=== PATIENT | female | born 1950 | race Caucasian/White ===

== ENCOUNTER 2025-01-17 10:20 | Outpatient (AMB) | payer MEDICARE, MEDICAID, SELFPAY ==
--- NOTE | 2025-01-17 10:28 | A.OFFVIS_ITS ---
Vital Signs 01/17/25 10:30 Height 5 ft 5 in Weight 183 lb BMI 30.4 BP 118/76 Blood Pressure Location Rt brachial Position Sitting Intake Visit Reasons: ENP - Tremors, Alcoholic Neuropathy Intake Note: referred for tremors alcoholic neuropathy Allergies No Known Allergies Allergy (Verified 01/17/25 10:30) HPI Comments Details: 74y/o female with h/o alcoholism, alcoholic neuropathy comes here for evaluation of tremors. she is in a jail for past 7 years. she reports tremors in her hands and LE , It is more with action and posture. She has difficulty eating, drinking from a cup and also with fine motor activity she was a heavy alcoholic - started at age 19 and stopped 7 years ago . she was drinking heavily prior to that- beer 6 cans a day minimum. 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 Senile degeneration of brain, not elsewhere classified Generalized anxiety disorder Panic disorder [episodic paroxysmal anxiety] Alcohol abuse with alcohol-induced anxiety disorder Alcohol abuse, uncomplicated 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 Deficiency of other specified B group vitamins Vitamin D deficiency Polycythemia Anemia Dysphagia, oropharyngeal phase Alcohol abuse with other alcohol-induced disorder Other and unspecified hyperlipidemia Need for assistance with personal care Contact with and (suspected) exposure to other viral communicable diseases COVID-19 Hypoxemia Hypotension, unspecified Major depressive disorder, single episode, unspecified Lipoprotein deficiency Alcohol abuse with intoxication, unspecified Age-related nuclear cataract, bilateral Influenza due to identified novel influenza A virus with other respiratory manifestations Other problems related to life management difficulty Difficulty in walking, not elsewhere classified Alcoholic polyneuropathy Chronic obstructive pulmonary disease, unspecified Unspecified dementia, unspecified severity, without behavioral disturbance, psychotic disturbance, mood disturbance, and anxiety Surgical History Hx of appendectomy Social History Alcohol intake: former Patient Tobacco Use Status: Former Tobacco user Physical Exam Vital Signs: Last Vital Signs BP 118/76 01/17/25 10:30 BMI result Body Mass Index 30.4 Const General: cooperative and comfortable Nutritional Appearance: overweight Orientation/consciousness: patient oriented x3 Eyes Pupils: Equal, round and reactive pupils present Neuro Other: Jaun past pointning and dysmetria truncal ataxia No rest tremors Tone was normal No postural, high amplitude action tremors General: patient oriented x3, moves all extremities, no focal motor deficits and Unable to assess gait Cranial nerves: Yes Facial sensation intact/muscles of mastication intact, Yes Equal, round and reactive pupils present, Yes Bilaterally intact EOM present, Yes Nystagmus not present, Yes Normal facial strength present and Yes Midline tongue present Cognition (Neuro): normal cognition Gait exam (Neuro): Unable to assess gait Motor exam (neuro): 5/5 motor strength present throughout and Normal motor muscle tone present throughout Deep tendon reflexes (DTR's): Right triceps reflex intensity grade: 1+, Left triceps reflex intensity grade: 1+, Rt Biceps (C5, C6): 1+, Left biceps reflex intensity grade: 1+, Right brachioradialis reflex intensity grade: 1+, Left brachioradialis reflex intensity grade: 1+, Right patellar reflex intensity grade: 1+ and Left patellar reflex intensity grade: 1+ Coordination: [id number] test normal Assessment & Plan Assessment & Plan (1) 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
[2025-01-17 10:30] VITALS: BP 118/76; BMI 30.4
--- OUTSIDE RECORDS SUMMARY | 2025-01-17 10:55 | XMS_ITS | Clinical Summary ---
Author Organization [facility] Address [address] [place] [address] Phone Care Team Providers Care Floorleader Name Role Phone Helene Rocha MD Primary Care Provider [phone] Social History Tobacco Use Types Packs/Day Years Used Date Smoking Tobacco: Never Assessed Comments Unknown Sex and Gender Information Value Date Recorded Sex Assigned at Not on file Legal Sex Female 9:58 AM EST Gender Identity Not on file Sexual Orientation Not on file Plan of Treatment Health Maintenance Due Date Last Done Comments Breast Cancer Screening 1950 DTaP,Tdap,and Td Vaccines (1 - Tdap) 12/19/1970 Pneumococcal Vaccine: 50+ Ye ars (1 of 2 - PCV) 12/19/1970 Zoster Vaccines (1 of 2) 12/19/2001 RSV Immunization Adult Patie nts (1 - Risk 60-74 years 1-dose series) 2011 Colorectal Cancer Screening: Colonoscopy 06/21/2022 Depression Screening 06/21/2022 Falls Risk Assessment 06/21/2022 Hepatitis C Screening 06/21/2022 Medicare Annual Wellness Visit 06/21/2022 Osteoporosis Screening (Bone Density Screening) 06/21/2022 Social Influencers of Health Screening 06/21/2022 COVID-19 Vaccine ( - 2023-2 5 season) 2024 Influenza Vaccine (Season Ended) 2025 HIB Vaccines Aged Out No longer eligi ble based on patient's age to complete this topic HPV Vaccines Aged Out No longer eligi ble based on patient's age to complete this topic Hepatitis A Vaccines Aged Out No long er eligible based on patient's age to complete this topic Hepatitis B Vaccines Aged Out No long er eligible based on patient's age to complete this topic IPV Vaccines Aged Out No longer eligi ble based on patient's age to complete this topic MMR Vaccines Aged Out No longer eligi ble based on patient's age to complete this topic Meningococcal ACWY Vaccine Aged Out N o longer eligible based on patient's age to complete this topic Meningococcal B Vaccine Aged Out No l onger eligible based on patient's age to complete this topic RSV Immunization Patients Un oswaldo 20 months Aged Out No longer eligible b ased on patient's age to complete this topic Varicella Vaccines Aged Out No longer eligible based on patient's age to complete this topic Insurance MEDICARE MEDICAID - [place] Care Teams Floorleader Relationship Specialty Start Date End Date Helene Rocha MD [address] [place] [id number] [phone] [place] [address] PCP - General Geriatric Medicine 06/06/24
== END 2025-01-17 10:58 | disposition home or self-care (01) ==
PROVIDERS: Visit Provider Psychiatry & Neurology Neurology
DX: G31.2 Degeneration of nervous system due to alcohol (principal); F10.20 Alcohol dependence, uncomplicated
CPT/HCPCS: 99204

== ENCOUNTER → 2025-01-17 10:20 | Outpatient (BNVA) | payer MEDICARE, MEDICAID, SELFPAY | PROVIDERS: Visit Provider Psychiatry & Neurology Neurology | DX: F10.288 Alcohol dependence with other alcohol-induced disorder (principal); G31.2 Degeneration of nervous system due to alcohol; G62.1 Alcoholic polyneuropathy | CPT/HCPCS: 99202 ==